=== PATIENT | female | born 1970 | race Caucasian/White ===

== ENCOUNTER 2019-02-03 11:53 | Emergency (ER) | payer OTHER ==
[~2019-02-03] VITALS: Ht 162.6 cm; Wt 122.9 kg
[2019-02-03] MEDS ORDERED: COZAAR50 MG (11:59)
[2019-02-03] MEDS ORDERED: NEURONTIN300 MG PO (13:48)
== END 2019-02-03 16:06 | disposition home or self-care (01) ==
LOC: ER 11:53
DX: G89.11 Acute pain due to trauma (principal); M79.671 Pain in right foot

== ENCOUNTER 2019-02-03 14:16 | Outpatient (CLI) | payer OTHER ==
[~2019-02-03 14:16] MED LIST: COZAAR50 MG; NEURONTIN300 MG PO
== END 2019-02-03 17:00 | disposition home or self-care (01) ==
LOC: MRI 14:16
DX: E10.69 Type 1 diabetes mellitus with other specified complication (principal)
CPT/HCPCS: 73718

== ENCOUNTER 2019-10-30 16:46 | Inpatient (IN) | payer OTHER ==
[~2019-10-30] VITALS: Ht 162.6 cm; Wt 120.7 kg
[2019-11-08] MEDS ORDERED: AMOX-CLAV 875-1 EACH PO (19:36)
[2019-11-08] MEDS ORDERED: INTESTINEX680 M1 PO (19:37)
[2019-11-08] MEDS ORDERED: ATACAND16 MG PO (19:38)
[2019-11-08] MEDS ORDERED: NORVASC2.5 M1 PO (19:39)
[2019-11-08] MEDS ORDERED: PEPCID AC20 MG PO (19:39)
== END 2019-11-08 20:46 | disposition home or self-care (01) | DRG 264 ==
LOC: ER 16:46 → SURH 10-31 11:06 → SURG 10-31 11:06 → SURH 11-02 16:13 → SURG 11-02 19:31
PROVIDERS: Colon & Rectal Surgery; ADMIT Internal Medicine; ATTEND Internal Medicine
PROC: 0D9Q3ZZ Drainage of Anus, Percutaneous Approach (ICD-10-PCS; 2019-10-31)
PROC: BW21YZZ Computerized Tomography (CT Scan) of Abdomen and Pelvis using Other Contrast (ICD-10-PCS; 2019-10-31)
PROC: 0JB90ZZ Excision of Buttock Subcutaneous Tissue and Fascia, Open Approach (ICD-10-PCS; principal; 2019-10-31 16:00)
DX: E11.52 Type 2 diabetes mellitus with diabetic peripheral angiopathy with gangrene (principal); L03.317 Cellulitis of buttock; K61.2 Anorectal abscess; I96 Gangrene, not elsewhere classified; L03.115 Cellulitis of right lower limb; E11.65 Type 2 diabetes mellitus with hyperglycemia; E11.628 Type 2 diabetes mellitus with other skin complications; B95.1 Streptococcus, group B, as the cause of diseases classified elsewhere; E66.8 Other obesity; I10 Essential (primary) hypertension